=== PATIENT | female | born 1975 | race Caucasian/White ===

== ENCOUNTER → 2016-12-13 | Outpatient (CLI) | payer BC ==
[~2016-12-13] MED LIST: LIDOCAINE 1%-EPI 1:100K, 30ML ONE
== END | disposition home or self-care (01) ==
LOC: CFH 08:04
PROVIDERS: ATTEND Obstetrics & Gynecology
DX: N63 Unspecified lump in breast (principal)
CPT/HCPCS: 19083; 76641; 88305; G0204; G0206; J3490

== ENCOUNTER → 2016-12-16 | Outpatient (CLI) | payer BC ==
[~2016-12-16] MED LIST changes: +LIDOCAINE 1%, 20ML ONE
== END | disposition home or self-care (01) ==
LOC: CFH 13:17
PROVIDERS: ATTEND Obstetrics & Gynecology
DX: D48.62 Neoplasm of uncertain behavior of left breast (principal)
CPT/HCPCS: 19083; 88305; J3490

== ENCOUNTER → 2016-12-28 | Outpatient (CLI) | payer BC | END | disposition home or self-care (01) | LOC: CFH 09:13 | PROVIDERS: ATTEND Surgery | DX: Z45.2 Encounter for adjustment and management of vascular access device (principal) | CPT/HCPCS: 71020 ==

== ENCOUNTER → 2017-01-03 | Outpatient (CLI) | payer BC ==
[~2017-01-03] MED LIST changes: +GADOBUTROL 10 MMOL/10 ML VIAL ONE; -LIDOCAINE 1%, 20ML ONE; -LIDOCAINE 1%-EPI 1:100K, 30ML ONE
== END | disposition home or self-care (01) ==
LOC: CFH 15:21
PROVIDERS: ATTEND Internal Medicine Hematology & Oncology
DX: Z51.11 Encounter for antineoplastic chemotherapy (principal); C50.412 Malignant neoplasm of upper-outer quadrant of left female breast; D70.1 Agranulocytosis secondary to cancer chemotherapy
CPT/HCPCS: A9585; C8908

== ENCOUNTER → 2017-01-04 | Outpatient (CLI) | payer BC | END | disposition home or self-care (01) | LOC: CVU 14:20 | PROVIDERS: ATTEND Internal Medicine Hematology & Oncology | DX: C50.412 Malignant neoplasm of upper-outer quadrant of left female breast (principal); D70.1 Agranulocytosis secondary to cancer chemotherapy; Z87.891 Personal history of nicotine dependence | CPT/HCPCS: 93306 ==

== ENCOUNTER → 2017-07-24 | Outpatient (CLI) | payer BC | LOC: ROC 08:34 | PROVIDERS: ATTEND Radiology Radiation Oncology | DX: Z08 Encounter for follow-up examination after completed treatment for malignant neoplasm (principal); C50.412 Malignant neoplasm of upper-outer quadrant of left female breast; Z17.1 Estrogen receptor negative status [ER-] | CPT/HCPCS: 99212; G0463 ==

== ENCOUNTER → 2017-08-09 | Outpatient (CLI) | payer BC | END | disposition home or self-care (01) | LOC: ROC 07:30 | PROVIDERS: ATTEND Radiology Radiation Oncology | DX: C50.412 Malignant neoplasm of upper-outer quadrant of left female breast (principal) | CPT/HCPCS: 99212; G0463 ==

== ENCOUNTER → 2017-08-18 | Outpatient (CLI) | payer BC | END | disposition home or self-care (01) | LOC: ROC 08:04 | PROVIDERS: ATTEND Radiology Radiation Oncology | DX: Z08 Encounter for follow-up examination after completed treatment for malignant neoplasm (principal); C50.412 Malignant neoplasm of upper-outer quadrant of left female breast; Z17.1 Estrogen receptor negative status [ER-] | CPT/HCPCS: 99212; G0463 ==

== ENCOUNTER → 2017-10-26 | Outpatient (CLI) | payer BC | END | disposition home or self-care (01) | LOC: PETCFH 09:26 | PROVIDERS: ATTEND Internal Medicine Hematology & Oncology | DX: M50.80 Other cervical disc disorders, unspecified cervical region (principal); M25.861 Other specified joint disorders, right knee; M25.862 Other specified joint disorders, left knee; M25.811 Other specified joint disorders, right shoulder; M25.812 Other specified joint disorders, left shoulder; C50.412 Malignant neoplasm of upper-outer quadrant of left female breast | CPT/HCPCS: 78306; A9503 ==

== ENCOUNTER → 2017-10-27 | Outpatient (CLI) | payer BC ==
[~2017-10-27] MED LIST changes: -GADOBUTROL 10 MMOL/10 ML VIAL ONE; +OMNIPAQUE 350 MG/ML, 100ML BOTTLE ONE
== END | disposition home or self-care (01) ==
LOC: CFH 12:43
PROVIDERS: ATTEND Internal Medicine Hematology & Oncology
DX: K76.0 Fatty (change of) liver, not elsewhere classified (principal); C50.919 Malignant neoplasm of unspecified site of unspecified female breast; Z90.13 Acquired absence of bilateral breasts and nipples
CPT/HCPCS: 71260; 74177; Q9967

== ENCOUNTER → 2017-11-03 | Outpatient (CLI) | payer BC ==
[~2017-11-03] MED LIST changes: +GADOBUTROL 10 MMOL/10 ML PFS ONE; -OMNIPAQUE 350 MG/ML, 100ML BOTTLE ONE
== END | disposition home or self-care (01) ==
LOC: CFH 12:48
PROVIDERS: ATTEND Internal Medicine Hematology & Oncology
DX: R51 Headache (principal); C50.912 Malignant neoplasm of unspecified site of left female breast
CPT/HCPCS: 70553; A9585

== ENCOUNTER 2017-11-07 06:44 | Day surgery (SDC) | payer BC ==
[~2017-11-07] VITALS: Ht 162.6 cm; Wt 101.4 kg
[2017-11-07] MEDS ORDERED: SODIUM CHLORIDE 0.9% 1,000 ML IV SCH (07:18)
[2017-11-07 07:47] VITALS: BP 125/85
[2017-11-07] MEDS ORDERED: OMEP-110 PO (07:57)
[2017-11-07] MEDS ORDERED: ALPR0.25 PO ×2 (07:57)
[2017-11-07] MEDS ORDERED: MELA10CA PO (08:02)
[2017-11-07] MEDS ORDERED: 5HTP PO (08:02)
[2017-11-07] MEDS ORDERED: [UNRECOGNIZED DRUG - OTHER] PO (08:02)
[2017-11-07] MEDS ORDERED: IBUP-1623 PO (08:02)
[2017-11-07] MEDS ORDERED: MULT-6 PO (08:02)
[2017-11-07] MEDS ORDERED: BETA PO (08:02)
[2017-11-07] MEDS ORDERED: CHOL100011 PO (08:02)
[2017-11-07] MEDS ORDERED: LIDOCAINE-MPF 2%, 2ML ONE ×2 (08:06→08:58)
[2017-11-07] MEDS ORDERED: FENTANYL PF 100 MCG/2ML ONE (08:07)
[2017-11-07] MEDS ORDERED: MIDAZOLAM 1 MG/ML, 5ML ONE ×2 (08:08)
[2017-11-07] MEDS ORDERED: NALOXONE 1 MG/ML, 2ML ONE (08:08)
[2017-11-07] MEDS ORDERED: FLUMAZENIL 0.1 MG/1 ML, 5ML ONE (08:08)
[2017-11-07] MEDS ORDERED: HYDROcodone/APAP 5/325 TABLET PO ONE (10:00)
[2017-11-07] MEDS ORDERED: IBUPROFEN 200 MG TABLET PO ONE (10:00)
[2017-11-07] MEDS ORDERED: IBUPROFEN 600 MG TABLET ONE (10:02)
[2017-11-07] MEDS ORDERED: HYDROcodone/APAP 5/325 TABLET ONE (10:03)
== END 2017-11-07 11:05 | disposition home or self-care (01) ==
LOC: OUT 06:44
PROVIDERS: ATTEND Internal Medicine Hematology & Oncology
DX: M89.8X5 Other specified disorders of bone, thigh (principal); C50.412 Malignant neoplasm of upper-outer quadrant of left female breast; D70.1 Agranulocytosis secondary to cancer chemotherapy; Z79.899 Other long term (current) drug therapy; Z87.39 Personal history of other diseases of the musculoskeletal system and connective tissue; Z98.890 Other specified postprocedural states
CPT/HCPCS: 20220; 77012; 88307; 88311; 99156; 99157; J1642; J2250; J3010; J3490; J7030; J2310

== ENCOUNTER → 2017-11-10 | Outpatient (CLI) | payer BC ==
[~2017-11-10] MED LIST changes: +5HTP PO; +ALPR0.25 PO; +BETA PO; +CHOL100011 PO; -GADOBUTROL 10 MMOL/10 ML PFS ONE; +IBUP-1623 PO; +MELA10CA PO; +MULT-6 PO; +OMEP-110 PO; +[UNRECOGNIZED DRUG - OTHER] PO
== END | disposition home or self-care (01) ==
LOC: ROC 08:10
PROVIDERS: ATTEND Radiology Radiation Oncology
DX: C50.412 Malignant neoplasm of upper-outer quadrant of left female breast (principal); D70.1 Agranulocytosis secondary to cancer chemotherapy; Z17.1 Estrogen receptor negative status [ER-]
CPT/HCPCS: 99212; 99213; G0463

== ENCOUNTER → 2018-01-22 | Outpatient (CLI) | payer BC | END | disposition home or self-care (01) | LOC: CFH 09:54 | PROVIDERS: ATTEND Internal Medicine Hematology & Oncology | DX: R91.8 Other nonspecific abnormal finding of lung field (principal); C50.412 Malignant neoplasm of upper-outer quadrant of left female breast | CPT/HCPCS: 76536 ==

== ENCOUNTER → 2018-03-27 | Outpatient (CLI) | payer BC ==
[~2018-03-27] MED LIST changes: +OMNIPAQUE 350 MG/ML, 100ML BOTTLE ONE
== END | disposition home or self-care (01) ==
LOC: CFH 12:38
PROVIDERS: ATTEND Surgery Plastic and Reconstructive Surgery
DX: Z42.1 Encounter for breast reconstruction following mastectomy (principal); Z85.3 Personal history of malignant neoplasm of breast
CPT/HCPCS: 74174; Q9967

== ENCOUNTER 2018-05-29 09:51 | Outpatient (CLI) | payer BC ==
[~2018-05-29 09:51] MED LIST changes: -OMNIPAQUE 350 MG/ML, 100ML BOTTLE ONE
== END 2018-05-29 23:59 | disposition home or self-care (01) ==
LOC: CFH 09:51
PROVIDERS: ATTEND Family Medicine
DX: Z42.1 Encounter for breast reconstruction following mastectomy (principal); Z85.3 Personal history of malignant neoplasm of breast; Z80.3 Family history of malignant neoplasm of breast; Z90.13 Acquired absence of bilateral breasts and nipples
CPT/HCPCS: 71046

== ENCOUNTER → 2019-02-07 | Outpatient (CLI) | payer BC ==
[~2019-02-07] MED LIST changes: +OMNIPAQUE 350 MG/ML, 100ML BOTTLE ONE
== END | disposition home or self-care (01) ==
LOC: CFH 11:49
PROVIDERS: ATTEND Internal Medicine Hematology & Oncology
DX: C50.412 Malignant neoplasm of upper-outer quadrant of left female breast (principal)
CPT/HCPCS: 71260; 74177; Q9967

== ENCOUNTER 2019-04-24 11:20 | Outpatient (CLI) | payer BC ==
[~2019-04-24 11:20] MED LIST changes: -OMNIPAQUE 350 MG/ML, 100ML BOTTLE ONE
[2019-04-24] MEDS ORDERED: CURCUMIN PO (12:47)
[2019-04-24] MEDS ORDERED: DEXT10TA7 PO (12:47)
[2019-04-24] MEDS ORDERED: OMEP40CA42 PO (12:47)
[2019-04-24] MEDS ORDERED: CYCL-259 PO (12:47)
[2019-04-24] MEDS ORDERED: MAGNESIUM PO (12:47)
[2019-04-24] MEDS ORDERED: CATHFLO (12:47)
[2019-04-24] MEDS ORDERED: LEVO25TA4 PO (12:47)
[2019-04-24] MEDS ORDERED: VITAMIN C PO (12:47)
[2019-04-24] MEDS ORDERED: BUPROPION PO (12:47)
[2019-04-24] MEDS ORDERED: KEYTRUDA (12:49)
[2019-04-29] MEDS ORDERED: MIDAZOLAM 1 MG/ML, 2ML ONE (11:21)
[2019-04-29] MEDS ORDERED: FENTANYL PF 250 MCG/5ML ONE (11:22)
[2019-04-29] MEDS ORDERED: SUCCINYLCHOLINE 20 MG/ML, 10ML ONE (12:50)
[2019-04-29] MEDS ORDERED: PROPOFOL 10 MG/ML, 20ML ONE (12:50)
[2019-04-29] MEDS ORDERED: ONDANSETRON 2MG/ML, 2ML ONE (12:50)
[2019-04-29] MEDS ORDERED: ROCURONIUM 10MG/ML,5ML ONE (12:50)
[2019-04-29] MEDS ORDERED: DEXAMETHASONE 4 MG/ML, 1ML ONE (12:50)
[2019-04-29] MEDS ORDERED: GLYCOPYRROLATE 0.2MG/1ML, 5ML ONE (12:50)
[2019-04-29] MEDS ORDERED: CEFAZOLIN 1,000 MG ONE (12:50)
[2019-04-29] MEDS ORDERED: NEOSTIGMINE 1 MG/ML, 10ML ONE (12:50)
== END 2019-04-24 23:59 | disposition home or self-care (01) ==
LOC: STAR 11:20
PROVIDERS: ATTEND Obstetrics & Gynecology Female Pelvic Medicine and Reconstructive Surgery
DX: Z02.9 Encounter for administrative examinations, unspecified (principal)

== ENCOUNTER 2019-04-29 08:20 | Day surgery (SDC) | payer BC ==
[~2019-04-29] VITALS: Ht 162.6 cm; Wt 86.4 kg
[~2019-04-29 08:20] MED LIST changes: +BUPROPION PO; +CATHFLO; +CURCUMIN PO; +CYCL-259 PO; +DEXT10TA7 PO; +KEYTRUDA; +LEVO25TA4 PO; +MAGNESIUM PO; +OMEP40CA42 PO; +VITAMIN C PO
[2019-04-29 08:52] VITALS: BP 131/84
[2019-04-29] MEDS ORDERED: LACTATED RINGERS 1,000 ML IV SCH ×2 (08:55→13:29)
[2019-04-29] MEDS ORDERED: DIAZEPAM 5 MG TABLET PO ONE ×2 (09:00→16:30)
[2019-04-29] MEDS ORDERED: ACETAMINOPHEN 500 MG TABLET PO ONE (09:00)
[2019-04-29] MEDS ORDERED: SCOPOLAMINE 1MG PATCH TD ONE (09:00)
[2019-04-29 09:18] LABS: HCG UR SG 1.025 (1.003-1.030)
[2019-04-29] MEDS ORDERED: BUPR300T94 PO (09:41)
[2019-04-29] MEDS ORDERED: INDIGO CARMINE 0.8%, 5ML ONE ×5 (11:00→11:57)
[2019-04-29] MEDS ORDERED: BUPIVACAINE/PF 0.25% ONE (11:00)
[2019-04-29] MEDS ORDERED: EPINEPHRINE 1 MG/ML, 1ML ONE (11:00)
[2019-04-29] MEDS ORDERED: ONDANSETRON 2MG/ML, 2ML ONE (11:26)
[2019-04-29] MEDS ORDERED: ROCURONIUM 10 MG/ML,10ML ONE (11:26)
[2019-04-29] MEDS ORDERED: NEOSTIGMINE 1 MG/ML, 10ML ONE (11:26)
[2019-04-29] MEDS ORDERED: PROPOFOL 10 MG/ML, 20ML ONE (11:26)
[2019-04-29] MEDS ORDERED: DEXAMETHASONE 4 MG/ML, 1ML ONE (11:26)
[2019-04-29] MEDS ORDERED: LIDOCAINE PF 2%, 5ML ONE (11:26)
[2019-04-29] MEDS ORDERED: CEFAZOLIN 1,000 MG ONE (11:26)
[2019-04-29] MEDS ORDERED: GLYCOPYRROLATE 0.2MG/1ML, 5ML ONE (11:26)
[2019-04-29] MEDS ORDERED: ONDANSETRON ODT 8 MG PO PRN (12:30)
[2019-04-29] MEDS ORDERED: ONDANSETRON 2MG/ML, 2ML IV PRN (12:30)
[2019-04-29] MEDS ORDERED: LORazepam 2 MG/ML, 1ML IVPush PRN ×2 (12:30→14:30)
[2019-04-29] MEDS ORDERED: PROMETHAZINE 25 MG/ML, 1ML IV PRN (12:30)
[2019-04-29] MEDS ORDERED: PROMETHAZINE 25 MG SUPP PR PRN (12:30)
[2019-04-29] MEDS ORDERED: IBUPROFEN 600 MG TABLET PO PRN (13:30)
[2019-04-29] MEDS ORDERED: ONDANSETRON 2MG/ML, 2ML IVPush PRN (13:30)
[2019-04-29] MEDS ORDERED: FENTANYL PF 100 MCG/2ML ONE ×2 (13:30→13:59)
[2019-04-29] MEDS ORDERED: HYDROcodone/APAP 5/325 TABLET PO PRN (13:30)
[2019-04-29] MEDS ORDERED: PROMETHAZINE 25 MG SUPP PR ONE (13:30)
[2019-04-29] MEDS ORDERED: OPIUM/BELLADONNA SUPP.RECT 16.2-30 MG ONE (13:35)
[2019-04-29] MEDS: FENTANYL PF 100 MCG/2ML IV PRN ×4 (13:35→14:10)
[2019-04-29] MEDS ORDERED: GLYCOPYRROLATE 0.4 MG/2 ML, 2ML ONE (13:36)
[2019-04-29] MEDS ORDERED: OXYcodone 5 MG/5 ML ORAL.SOL UDC ONE ×2 (13:59→14:32)
[2019-04-29] MEDS ORDERED: OPIUM/BELLADONNA SUPP.RECT 16.2-30 MG PR ONE (14:00)
[2019-04-29] MEDS ORDERED: GLYCOPYRROLATE 0.2MG/1ML, 5ML IVPush ONE (14:00)
[2019-04-29] MEDS: OXYcodone 5 MG/5 ML ORAL.SOL UDC PO PRN ×2 (14:01→14:32)
[2019-04-29] MEDS ORDERED: MEPERIDINE/PF 25MG/ML,1ML ONE (14:18)
[2019-04-29] MEDS ORDERED: DIAZEPAM 5 MG/ML, 2ML IVPush PRN (14:30)
[2019-04-29] MEDS ORDERED: HYDROmorphone 2 MG/ML, 1ML IVPush PRN (14:30)
[2019-04-29] MEDS ORDERED: MEPERIDINE/PF 25MG/ML,1ML IVPush PRN (14:30)
[2019-04-29] MEDS ORDERED: HYDROmorphone 1 MG/ML, 1ML INJ ONE (14:36)
[2019-04-29] MEDS ORDERED: METHOCARBAMOL 1,000 MG in DEXTROSE 5% 100 ML IV ONE (15:00)
[2019-04-29] MEDS ORDERED: KETOROLAC 30 MG/1 ML ONE (15:51)
[2019-04-29] MEDS ORDERED: KETOROLAC 30 MG/1 ML IVPush SCH (16:00)
[2019-04-29] MEDS ORDERED: DIAZEPAM 5 MG TABLET ONE (16:12)
== END 2019-04-29 18:50 | disposition home or self-care (01) ==
LOC: OUT 08:20
PROVIDERS: ATTEND Obstetrics & Gynecology Female Pelvic Medicine and Reconstructive Surgery
DX: Z15.01 Genetic susceptibility to malignant neoplasm of breast (principal); Z45.2 Encounter for adjustment and management of vascular access device; D25.2 Subserosal leiomyoma of uterus; N83.292 Other ovarian cyst, left side; N83.291 Other ovarian cyst, right side; N83.8 Other noninflammatory disorders of ovary, fallopian tube and broad ligament; N73.6 Female pelvic peritoneal adhesions (postinfective); K21.9 Gastro-esophageal reflux disease without esophagitis; F32.9 Major depressive disorder, single episode, unspecified; F41.9 Anxiety disorder, unspecified; E03.9 Hypothyroidism, unspecified; Z79.899 Other long term (current) drug therapy; Z98.890 Other specified postprocedural states; Z80.41 Family history of malignant neoplasm of ovary; Z82.49 Family history of ischemic heart disease and other diseases of the circulatory system
CPT/HCPCS: 36590; 58552; 81025; 88307; J0171; J0330; J0690; J1100; J1170; J1885; J2175; J2250; J2405; J2704; J2710; J2800; J3010; J3490; J7120; S2900

== ENCOUNTER → 2019-10-18 | Outpatient (CLI) | payer BC ==
[~2019-10-18] MED LIST changes: +BUPR300T94 PO; +OMNIPAQUE 350 MG/ML, 100ML BOTTLE ONE
== END | disposition home or self-care (01) ==
LOC: CFH 09:11
PROVIDERS: ATTEND Internal Medicine Hematology & Oncology
DX: C50.412 Malignant neoplasm of upper-outer quadrant of left female breast (principal); K76.0 Fatty (change of) liver, not elsewhere classified; M51.36 Other intervertebral disc degeneration, lumbar region
CPT/HCPCS: 74177; Q9967

== ENCOUNTER → 2020-04-30 | Outpatient (CLI) | payer BC ==
[~2020-04-30] MED LIST changes: -CYCL-259 PO; +CYCL10TA2 PO; -OMNIPAQUE 350 MG/ML, 100ML BOTTLE ONE
== END | disposition home or self-care (01) ==
LOC: PETCFH 13:57
PROVIDERS: ATTEND Family Medicine
DX: C50.919 Malignant neoplasm of unspecified site of unspecified female breast (principal); R92.2 Inconclusive mammogram
CPT/HCPCS: 78815; A9552